=== PATIENT | male | born 1945 | race Caucasian/White ===

== ENCOUNTER 2016-09-14 04:16 | Inpatient (IN) | payer BC, MEDICARE ==
[~2016-09-14] VITALS: Ht 182.9 cm; Wt 91.4 kg
[2016-09-14] VITALS (28 sets, daily range): BP systolic 109–144; BP diastolic 44–80
[~2016-09-14 04:16] MED LIST changes: -AML5T PO; +DILTIAZEM 25 MG/5 ML (CARDIZEM) VIAL IV ONE; +DILTIAZEM 25 MG/5 ML (CARDIZEM) VIAL ONE; -LISI1TAB10 PO; -NF-ESOM40C PO
--- NOTE | 2016-09-14 04:20 | NUR ---
Pt given Cardizem 25mg under a temporary name in the [facility], due to pt not being in the system yet Cardizem 25mg at 0420 Cardizem 10mg at 0425 Cardizem 10mg at 0435 Pt's HR at 0500 is 97 and BP is 126/68 A-fib 95% on a nonrebreather at 15liters
[2016-09-14 04:35] LABS: MEAN CORPUSCULAR VOLUME 89 FL (80-100); MEAN PLATELET VOLUME 9.2 FL (6.0-9.5); PLATELET COUNT 308 10^3uL (150-450); WHITE BLOOD COUNT 9.38 10^3uL (4.0-11.0)
[2016-09-14] MEDS ORDERED: AML5T PO (04:53)
[2016-09-14] MEDS ORDERED: NF-ESOM40C PO (04:53)
[2016-09-14] MEDS ORDERED: LISI1TAB10 PO (04:53)
[2016-09-14] MEDS ORDERED: FUROSEMIDE 40 MG/4 ML (LASIX) VIAL IV ONE (04:55)
[2016-09-14 04:56] LABS: ALBUMIN 3.9 g/dL (3.4-5.0); ANION GAP 15.5 MEQ/L (3-15); CALCULATED IONIZED CALCIUM 3.9 mg/dL (3.8-4.6); TOTAL PROTEIN 7.4 g/dL (6.4-8.5)
[2016-09-14 05:06] LABS: MEAN CORPUSCULAR HEMOGLOBIN 31.8 PG (26.0-34.0); MEAN CORPUSCULAR HGB CONC 35.8 g/dL (31.0-37.0)
[2016-09-14] MEDS ORDERED: POTASSIUM CHLORIDE ER 20 MEQ TABLET PO ONE (05:20)
[2016-09-14 05:21] LABS: BAND NEUTROPHILS % 1 % (0-6); EOSINOPHILS % 3 % (0-4); LYMPHOCYTES # 4.6 #; MONOCYTES # 0.8 #; MONOCYTES % 9 % (3-11); SEGMENTED NEUTROPHILS % 38 % (51-67); TOTAL CELLS COUNTED 100
[2016-09-14 05:22] LABS: ANISOCYTOSIS MODERATE; POIKILOCYTOSIS MODERATE; RBC MORPH SEE REFERENCE (NORMAL)
[2016-09-14] MEDS: meTOprolol TARTRATE 50 MG (LOPRESSOR) TABLET PO SCH ×2 (05:50→09:00)
[2016-09-14] MEDS ORDERED: MAG HYDROX/AL HYDROX/SIMETH 200-200-20/5 ML (MAG-AL PLUS) 30 ML UDC PO PRN (05:50)
[2016-09-14] MEDS ORDERED: FUROSEMIDE 40 MG/4 ML (LASIX) VIAL IV SCH (05:50)
[2016-09-14] MEDS ORDERED: ONDANSETRON 4 MG (ZOFRAN) ORAL DISSOLVE TAB PO PRN (05:50)
[2016-09-14] MEDS ORDERED: ACETAMINOPHEN 325 MG TAB (TYLENOL) PO PRN (05:50)
[2016-09-14] MEDS ORDERED: CALCIUM CARBONATE CHEWABLE 300 MG (TUMS) TABLET PO PRN (05:50)
--- NOTE | 2016-09-14 06:21 | NUR ---
Dr. Arroyo called and asked to hold pt in ED until he spoke with DR Howe
--- NOTE | 2016-09-14 06:23 | History and Physical (E) ---
History & Physical Admission Details Admit Date/Time 09-14 0600 Primary Care Provider Subjective CC SOA, palpitations History of Present Illness Very pleasant 71-year-old male who lives in [place] but is in town for work called emergency services early this am with acute onset of shortness of breath and palpitations. These sx came on after he had awakened and had been up. He called emergency services, they heard some wheezing and he received a nebulized bronchodilator. He was found to be in rapid A. fib, in the emergency room he was given 3 IV boluses of Cardizem and his heart rate slowed into the 1 teens to 120s. He is also given a dose of IV Lasix 40 mg and is feeling better. He has no known history of atrial fibrillation or heart disease. I asked our ER provider to discuss possibility of cardioversion now with apparent acute onset and fairly clear timing of onset. CV in [facility] recommended not to cardiovert at this time in case had been in and out of it longer. He recommended anticoagulation and possible amiodarone ( but I did not get details of IV load or oral load) He was back in the 130s HR so cardizem infusion was started in the ER. PMH HTN tobacco use syndrome FH NC based on age SH smokes 1-1.5 PPD tob lives in [place] visiting for work Allergies: Coded Allergies: No Known Drug Allergies (Unverified , 09/14/16) Home Medications Summary lisinopril Objective Vital Signs Date Time Temp Pulse Resp B/P Pulse Ox O2 Delivery O2 Flow Rate FiO2 09/14/16 04:32 Nonrebreather 15 09/14/16 04:26 96.1 147 20 134/75 78 Laboratory Results Past 24 Hrs 09/14/16 04:04: Absolute Band Neutrophils 0.1, Alanine Aminotransferase (ALT/SGPT) 25, Albumin 3.9, Albumin/Globulin Ratio 1.114, Alkaline Phosphatase 125, Anion Gap 15.5, Anisocytosis Moderate, Aspartate Amino Transf (AST/SGOT) 33, BUN/Creatinine Ratio 16, Band Neutrophils % 1, Basophils # (Auto) , Basophils # (Manual) 0.0, Basophils % (Manual) 0, Basophils (%) (Auto) , Blood Morphology Comment See reference, Blood Urea Nitrogen 12, Calcium Level 9.0, Calcium/Ionized Calcium Ratio 3.9, Calculated Osmolality 257, Carbon Dioxide Level 23, Chloride Level 95 , Creatinine 0.73, Differential Total Cells Counted 100, Eosinophils # 0.3, Eosinophils # (Auto) , Eosinophils % (Manual) 3, Eosinophils (%) (Auto) , Estimat Glomerular Filtration Rate 127.8, Estimated GFR (Non- 105.6, Free Thyroxine (T4) Calculated 1.34, Glucose Level 190, Hematocrit 43.30 , Hemoglobin 15.5, Lymphocytes # 4.6, Lymphocytes # (Auto) , Lymphocytes % ( Manual) 49, Lymphocytes (%) (Auto) , Mean Corpuscular Hemoglobin 31.8, Mean Corpuscular Hemoglobin Concent 35.8, Mean Corpuscular Volume 89, Mean Platelet Volume 9.2, Metamyelocytes % 0, Monocytes # 0.8, Monocytes # (Auto) , Monocytes % (Manual) 9, Monocytes (%) (Auto) , XK-Sid-D-Type Natriuretic Peptide 1740, Neutrophils # 3.6, Neutrophils # (Auto) , Neutrophils (%) (Auto) , Platelet Count 308, Poikilocytosis Moderate, Potassium Level 3.3, Prothromb Time International Ratio 1.0, Prothrombin Time 11.4, Red Blood Count 4.88, Red Cell Distribution Width 14.0, Segmented Neutrophils % 38, Sodium Level 130, Thyroid Stimulating Hormone (TSH) 0.99, Thyroxine (T4) 6.8, Total Bilirubin 0.6, Total Protein 7.4, Troponin I 0.028, White Blood Count 9.38 Imaging CXR with cephalization Assessment/Plan * acute onset of Afib RVR. New onset. I asked ER to discuss w CV, he did d/w in [facility], recommended not to CV at this time if has been > 48 hours or intermitttent. Seems like acute onset this am, but we should replace K and check Mg first. Will dose w Apixaban or whatever formulary is for now, rate control with IV cardizem and get echo. TSH is normal. LIkelky with HTN and lung dz as culprits. Ordered lopressor 100 mg PO x 1 to begin "load" CV in ER discussion mentioned amiodarone as well, but will need to discuss to see if IV or oral load is indicated, could lead to cardioversion as well and may want to be on DOAC longer than 48 hours prior to starting * acute CHF. unclear if systolic/diastolic, assuming from rapid rate. echo ordered. Again will need to see if CV can do echo here/now or will have to wait to be interpreted. * HTN * tobacco abuse syndrome *GERD Diet- low sodium Code Status-ful DVT prophylaxis-apixaban ordered Disposition-full admit to ICU for cardizem infusion etc End of Report . BEA CARRANZA MD September 14, 2016 06:23 End of Report . BEA CARRANZA MD September 14, 2016 06:23
[2016-09-14] MEDS ORDERED: DILTIAZEM IV FOR DRIP 125 MG in SODIUM CHLORIDE 100 ML IV PRN ×2 (06:25→06:35)
--- NOTE | 2016-09-14 06:36 | NUR ---
pt's 02 sat checked with an ear probe, noted sats are 99%, pt turned down the 02 to 4 liters per NC, sats are remaining 97%.
[2016-09-14 06:40] LABS: BILIRUBIN,URINE Negative (Negative); CLARITY,URINE Clear; COLOR,URINE Yellow; GLUCOSE, URINE (UA) Negative (Negative); LEUKOCYTE ESTERASE ,URINE Negative (Negative); UROBILINOGEN,URINE 0.2 mg/dL (0.2-1.0)
[2016-09-14] MEDS ORDERED: ALBUTEROL 0.083% NEB SOLUTION 2.5 MG/3 ML VIAL INH PRN (06:45)
[2016-09-14 06:46] LABS: URINE CENTRIFUGED VOLUME 12 mL
[2016-09-14 06:48] LABS: RBC,URINE 0-2 /HPF
--- NOTE | 2016-09-14 07:00 | NUR ---
Pt arrived in ICU at 0650, report received from Caity RN and Mary RN. Pt taken to room 346 per stretcher and helped to bed. Monitor applied showing Afib, pt is on a cardizem gtt at 5mg/hr. VS taken with HR in the 130's. Assessments completed. Lung sounds with rales and ronchi. Pt has a hx of at least 50 yrs smoking. BS audible in all quads, abdomen soft, rounded. Pulses palpable in radial and dorsal and strong. Pt is alert and oriented x 4, is here working from [place]. States he became SOB this morning and diaphoretic. Has not had this happen before.
[2016-09-14] MEDS ORDERED: NS FLUSH 10 ML PRN IV (08:05)
[2016-09-14] MEDS ORDERED: NS FLUSH 3 ML PRN IV (08:05)
--- NOTE | 2016-09-14 08:30 | Diagnostic Imaging Report ---
Indication: Dyspnea and weakness. Discussion: Single portable upright view of the chest was obtained, no comparison. Borderline cardiomegaly is present. Bilateral mixed interstitial and alveolar opacities are noted, likely pulmonary edema, less likely atypical infection. No pleural fluid or pneumothorax. No acute osseous abnormality. Impression: 1. Borderline cardiomegaly with suspected failure. Dictated by: Dictated on workstation # [id number]
--- NOTE | 2016-09-14 08:50 | NUR ---
Radiology present to do ultrasound of carotids and echo, pt tolerated procedure well.
[2016-09-14] MEDS ORDERED: APIXABAN 2.5 MG (ELIQUIS) TABLET PO SCH (09:00)
[2016-09-14] MEDS ORDERED: NS FLUSH 3 ML DAILY IV SCH (09:00)
[2016-09-14] MEDS ORDERED: SPIRONOLACTONE 50 MG PO SCH (09:00)
[2016-09-14] MEDS ORDERED: ASPIRIN 325 MG TAB PO SCH (09:00)
--- NOTE | 2016-09-14 09:43 | NUR ---
Pt converted to SR, cardizem gtt decreased to 5mg/hr, per Dr orders.
--- NOTE | 2016-09-14 09:49 | NUR ---
NUTRITION ASSESSMENT Level 1 Patient: Caleb Elkins Age/Sex: 71/M Date Screened: 09-14-16 Weight: 201#/91.4 kg Height: 72 inches Primary Diagnosis: new onset a fib, HTN, CHF Diet Order: medium diabetic Relevant labs: sodium 130, potassium 3.3, glucose 190, magnesium 1.5 Food allergies: N Nutrition Assessment Criteria Age over 80: N Body Mass Index (BMI) under 19: N Admission Screening Indicates Risk? N Moderate/High Risk Diagnosis: 6 points TPN or PPN: N NPO or clear liquid diet: N Serum Glucose <70 or >180: 3 points Hgb A1c >6.7: N/A Total: 9 points Risk Screen: __ Patient at low nutritional risk based on available data; reevaluate in 5-7 days __ Patient at moderate nutritional risk based on available data; reevaluate in 3-5 days _X_ Patient at high nutritional risk; complete Nutrition Assessment within 48 hours of admission.
[2016-09-14] MEDS: POTASSIUM CHLORIDE ER 20 MEQ TABLET PO SCH ×2 (10:12→12:55)
--- NOTE | 2016-09-14 10:49 | Progress Note-A/P (E) ---
Progress Note Subjective Subjective rapid cardiac rate causing syspnea 2 a.m. today Objective VS Vital Signs Date Time Temp Pulse Resp B/P Pulse Ox O2 Delivery O2 Flow Rate FiO2 09/14/16 09:47 79 09/14/16 09:45 26 114/59 92 Nasal cannula 09/14/16 08:41 97.1 09/14/16 06:35 4 Current Medications Current Medications Acetaminophen 650 mg Q6H PRN PO; Start 09/14/16 at 05:50 Tramadol HCl 50 mg Q6H PRN PO; Start 09/14/16 at 05:50 Calcium Carbonate 300 mg Q8H PRN PO; Start 09/14/16 at 05:50 Al Hydrox/Mg Hydrox/Simethicone 30 ml Q6H PRN PO; Start 09/14/16 at 05:50 Ondansetron HCl 4 mg Q6HR PRN PO; Start 09/14/16 at 05:50 Metoprolol Tartrate 50 mg BID PO; Start 09/14/16 at 05:50 Furosemide 40 mg Q12H IV; Start 09/14/16 at 05:50 Aspirin 325 mg 325 mg DAILY@0900 PO Last administered on 09/14/16 10:13; Admin Dose 325 MG; Start 09/14/16 at 09:00 Diltiazem HCl/ Sodium Chloride 125 ml @ 0 mls/hr Q0M PRN IV; Start 09/14/16 at 06:35 Apixaban 5 mg BID PO Last administered on 09/14/16 08:20; Admin Dose 5 MG; Start 09/14/16 at 09:00 Potassium Chloride 20 meq TID PO Last administered on 09/14/16 10:12; Admin Dose 20 MEQ; Start 09/14/16 at 09:00; Stop 09/16/16 at 08:59 Albuterol Sulfate 2.5 mg Q2H PRN INH; Start 09/14/16 at 06:45 Sodium Chloride 3 ml DAILY IV; Start 09/14/16 at 09:00 Sodium Chloride 3 ml UD PRN IV; Start 09/14/16 at 08:05 Sodium Chloride 10 ml UD PRN IV; Start 09/14/16 at 08:05 General Awake, alert, oriented to person, place, and situation. NAD at present HEENT EOMI, PERRL CV S1 S2 audible irregular atrial repid rvr new onset atrial fib. converted to sinus 10;15 a.m. Lungs bilat expiratory wheezing bilat a. p. no hx of copd but long two pks per day smoker. Abdomen Soft non distended, no tenderness to palpation, no masses obese. Extremities No edema Integumentary No unusual findings Neuro No focal motor neuro deficits Musculoskeletal wnl at this time. Labs, Most Recent- Laboratory Results Past 24 Hrs 09/14/16 04:04: Absolute Band Neutrophils 0.1, Alanine Aminotransferase (ALT/SGPT) 25, Albumin 3.9, Albumin/Globulin Ratio 1.114, Alkaline Phosphatase 125, Anion Gap 15.5, Anisocytosis Moderate, Aspartate Amino Transf (AST/SGOT) 33, BUN/Creatinine Ratio 16, Band Neutrophils % 1, Basophils # (Auto) , Basophils # (Manual) 0.0, Basophils % (Manual) 0, Basophils (%) (Auto) , Blood Morphology Comment See reference, Blood Urea Nitrogen 12, Calcium Level 9.0, Calcium/Ionized Calcium Ratio 3.9, Calculated Osmolality 257, Carbon Dioxide Level 23, Chloride Level 95 , Creatinine 0.73, Differential Total Cells Counted 100, Eosinophils # 0.3, Eosinophils # (Auto) , Eosinophils % (Manual) 3, Eosinophils (%) (Auto) , Estimat Glomerular Filtration Rate 127.8, Estimated GFR (Non- 105.6, Free Thyroxine (T4) Calculated 1.34, Glucose Level 190, Hematocrit 43.30 , Hemoglobin 15.5, Lymphocytes # 4.6, Lymphocytes # (Auto) , Lymphocytes % ( Manual) 49, Lymphocytes (%) (Auto) , Mean Corpuscular Hemoglobin 31.8, Mean Corpuscular Hemoglobin Concent 35.8, Mean Corpuscular Volume 89, Mean Platelet Volume 9.2, Metamyelocytes % 0, Monocytes # 0.8, Monocytes # (Auto) , Monocytes % (Manual) 9, Monocytes (%) (Auto) , AQ-Nul-F-Type Natriuretic Peptide 1740, Neutrophils # 3.6, Neutrophils # (Auto) , Neutrophils (%) (Auto) , Platelet Count 308, Poikilocytosis Moderate, Potassium Level 3.3, Prothromb Time International Ratio 1.0, Prothrombin Time 11.4, Red Blood Count 4.88, Red Cell Distribution Width 14.0, Segmented Neutrophils % 38, Sodium Level 130, Thyroid Stimulating Hormone (TSH) 0.99, Thyroxine (T4) 6.8, Total Bilirubin 0.6, Total Protein 7.4, Troponin I 0.028, White Blood Count 9.38 09/14/16 04:40: Magnesium Level 1.5 09/14/16 06:20: Urine Bacteria None seen, Urine Bilirubin Negative, Urine Blood Trace-lysed, Urine Clarity Clear, Urine Collection Type Clean catch, Urine Color Yellow, Urine Glucose (UA) Negative, Urine Hyaline Casts Rare, Urine Ketones Negative, Urine Leukocyte Esterase Negative, Urine Microscopic RBC 0-2, Urine Mucus Rare, Urine Nitrite Negative, Urine Protein 1+, Urine Specific Spencer 1.015, Urine Squamous Epithelial Cells 0-2, Urine Urobilinogen 0.2, Urine WBC None seen, Urine pH 6.0, Volume Urine Centrifuged 12 ml 24 Hr Result Diagram CBC BMP Last 24 Hrs 09/14/16 04:04 Micro Results none Impressions multiple chronic and one new to patient of 1. atrial fib with rvr , converted 2. copd status unknown 3. tobacco abuser 4. hypertension not followed in over a year. 5. mild cough non productive. Assessment atrial fib presentation with rvr now controlled. in icu. Plan vanessa cardiac drip and vanessa and begin po dose in 12 hrs if c.r. greater than 90. discuss with patient to see either a local doctor or return to [facility] to pcp their. echo and carotid u/s. FALLON OLSEN DO September 14, 2016 10:49
--- NOTE | 2016-09-14 11:01 | NUR ---
NUTRITION ASSESSMENT Level II Patient: Caleb Elkins Age/Sex: 71/M Date Assessed: 09-14-16 ASSESSMENT Pertinent History: Patient admitted with new onset a fib, CHF and HTN, and received consult request for patient education. Of note, his blood glucose is elevated but he does not have a diagnosis of diabetes. PMHx includes HTN and tobacco abuse. He lives in [place] but was working in town when became ill. No known weight loss or GI concerns. Meds/Nutrition: KCl, Lasix Weight: 201#/91.4 kg Height: 72 inches Body Mass Index (BMI): 27.3 [place] Body Weight : 178#/80.9 kg % IBW: 112% GASTROINTESTINAL Appetite: fair, eating 50% Diet Order: medium diabetic, 2 g. sodium Unintentional loss of >10 lbs. in 3 months: N Difficult to chew/swallow: N Diabetes: N Relevant Labs: sodium 130, potassium 3.3, glucose 190, magnesium 1.5 Calculations for Nutritional Assessment Estimated calorie needs: 22-25 kcals/kg = 2,000-2,275 kcals Estimated protein needs: 1.0-1.2 g/kg = 91-109 g. day DIAGNOSIS 1. Nutrition Diagnosis: Decreased sodium needs related to heart failure as evidenced by new-onset CHF with a fib and HTN. 2. Nutrition Diagnosis: Altered nutrition-related lab values (glucose) related to unsure--endocrine dysfunction vs. stress response as evidenced by blood glucose 190 without dx of diabetes. NUTRITIONAL INTERVENTION Goal: Patient will receive adequate nutrition to meet his needs. Plan: Patient was sleeping when I went to see him, and I did not waken him at this time. Visited with RN who confirmed that he does not have an official diagnosis of diabetes at this time. Recommend we obtain an Hgb A1c to better assess his blood sugars and determine if the elevation is due to acute illness or previously undiagnosed diabetes. Plan to visit with pt. re: low sodium diet (especially while traveling and eating out) tomorrow morning. In the meantime, will provide 2 g. sodium, medium diabetic diet as ordered, though unsure if the medium diabetic restrictions will remain necessary. Will follow closely with physician. MONITORING & EVALUATION _X_ Monitor patients menu selections _X_ Monitor patients food intake per nursing notes __ Monitor NPO/clear liquid days _X_ Monitor lab values __ Monitor I&O __ Other
--- NOTE | 2016-09-14 11:39 | Diagnostic Imaging Report ---
PROCEDURE: US Carotid Duplex Bilateral. TECHNIQUE: Multiple real-time grayscale images were obtained over the carotid arteries in various projections bilaterally. Additional duplex Doppler and color Doppler images were also obtained. Indication: Atrial fibrillation, history of tobaccoism, carotid stenosis. Comparison: None. Discussion: Sonographic evaluation of the common and internal carotid arteries and bilateral vertebral arteries was performed with a linear transducer. Images were assessed for grayscale appearance, spectral and color Doppler blood flow. Atherosclerotic plaque is present within the bilateral carotid bifurcations. Elevated flow velocities are present within the bilateral external carotid arteries consistent with greater than 70% stenosis. Normal flow velocities are present within the bilateral internal carotid arteries consistent with greater than 50% stenosis. Normal antegrade flow within the bilateral vertebral arteries. Impression: 1. Atherosclerotic plaque within the bilateral internal carotid arteries contributing to less than 50% stenosis. Dictated by: Dictated on workstation # [id number]
--- NOTE | 2016-09-14 12:30 | NUR ---
Dr. Vizcaino present and new order received to dc the cardizem gtt. Pt remains in SR.
[2016-09-14 12:33] LABS: ANION GAP 11.8 MEQ/L (3-15)
[2016-09-14] MEDS ORDERED: ENOXAPARIN 30 MG/0.3 ML (LOVENOX) SYR SC SCH (13:10)
[2016-09-14] MEDS ORDERED: DIAZEPAM 5 MG (VALIUM) TABLET PO ONE (13:10)
--- NOTE | 2016-09-14 13:31 | Discharge Instructions (E) ---
Discharge Instructions Instructions You are being transferred to [facility] for cardiology services. Britt Lin APRN September 14, 2016 13:31 FALLON OLSEN DO September 15, 2016 15:58
--- NOTE | 2016-09-14 13:33 | Discharge Summary (E FT) ---
Discharge Summary (E FT) Admit Date September 14, 2016 at 06:05 Discharge Date September 14, 2016 4372 Admitting Provider Toni Arroyo MD Primary Care Provider Attending Provider Toni Arroyo MD Consulting Provider Hospital Course Summary CC SOA, palpitations History of Present Illness Very pleasant 71-year-old male who lives in [place] but is in town for work called emergency services early this am with acute onset of shortness of breath and palpitations. These sx came on after he had awakened and had been up. He called emergency services, they heard some wheezing and he received a nebulized bronchodilator. He was found to be in rapid A. fib, in the emergency room he was given 3 IV boluses of Cardizem and his heart rate slowed into the 1 teens to 120s. He is also given a dose of IV Lasix 40 mg and is feeling better. He has no known history of atrial fibrillation or heart disease. I asked our ER provider to discuss possibility of cardioversion now with apparent acute onset and fairly clear timing of onset. CV in [facility] recommended not to cardiovert at this time in case had been in and out of it longer. He recommended anticoagulation and possible amiodarone ( but I did not get details of IV load or oral load) He was back in the 130s HR so cardizem infusion was started in the ER. Current Medications Medications (Trade) Dose Ordered Sig/Mendel Route Start Time Stop Time Status Last Admin Acetaminophen (Tylenol Tab) 650 mg Q6H PRN PO 09/14/16 05:50 Al Hydrox/Mg Hydrox/Simethicone (Mag-Al Plus Suspension) 30 ml Q6H PRN PO 09/14/16 05:50 Albuterol Sulfate (Proventil 0.083% Neb Solution) 2.5 mg Q2H PRN INH 09/14/16 06:45 Apixaban (Eliquis) 5 mg BID PO 09/14/16 09:00 09/14/16 08:20 Aspirin (Aspirin Tab) 325 mg DAILY@0900 PO 09/14/16 09:00 09/14/16 10:13 Calcium Carbonate (Tums) 300 mg Q8H PRN PO 09/14/16 05:50 Diltiazem HCl 125 mg/Sodium Chloride 125 ml @ 0 mls/hr Q0M PRN IV 09/14/16 06:25 09/14/16 07:56 DC 09/14/16 06:43 Diltiazem HCl/ Sodium Chloride (Cardizem Iv For Drip/NS (Ivpb)) 125 ml @ 0 mls/hr Q0M PRN IV 09/14/16 06:35 09/14/16 12:24 DC Enoxaparin Sodium (Lovenox) 30 mg Q12HR SC 09/14/16 13:10 09/14/16 13:25 Furosemide (Lasix Inj) 40 mg Q12H IV 09/14/16 05:50 Metoprolol Tartrate (Lopressor Tab) 50 mg BID PO 09/14/16 05:50 Ondansetron HCl (Zofran Oral Dissolve) 4 mg Q6HR PRN PO 09/14/16 05:50 Potassium Chloride (Klor Con M20) 20 meq TID PO 09/14/16 09:00 09/16/16 08:59 09/14/16 12:55 Sodium Chloride (Normal Saline Flush) 3 ml DAILY IV 09/14/16 09:00 Sodium Chloride (Normal Saline Flush) 3 ml UD PRN IV 09/14/16 08:05 Sodium Chloride (Normal Saline Flush) 10 ml UD PRN IV 09/14/16 08:05 Spironolactone 50 mg 50 mg DAILY PO 09/14/16 09:00 09/14/16 09:00 DC Tramadol HCl (Ultram) 50 mg Q6H PRN PO 09/14/16 05:50 Vital Signs Date Time Temp Pulse Resp B/P Pulse Ox O2 Delivery O2 Flow Rate FiO2 09/14/16 13:12 72 09/14/16 13:00 24 136/68 95 Nasal cannula 09/14/16 08:41 97.1 09/14/16 06:35 4 Today he denied any chest pain but felt diaphoretic - Troponin checked and elevated 4.389. EKG shows shannon ST wave changes. NOT SOB and never complained of any chest pain. Awake and alert PERRLA Neck supple Lungs clear CV: S1S2 irregular- converted to Sinus at 10:15 this am abdomen soft nontender Ext: no cyanosis Neuro: alert and oriented, no focal neuro changes Skin: warm and dry Laboratory Results Past 24 Hrs 09/14/16 04:04: Absolute Band Neutrophils 0.1, Alanine Aminotransferase (ALT/SGPT) 25, Albumin 3.9, Albumin/Globulin Ratio 1.114, Alkaline Phosphatase 125, Anion Gap 15.5, Anisocytosis Moderate, Aspartate Amino Transf (AST/SGOT) 33, BUN/Creatinine Ratio 16, Band Neutrophils % 1, Basophils # (Auto) , Basophils # (Manual) 0.0, Basophils % (Manual) 0, Basophils (%) (Auto) , Blood Morphology Comment See reference, Blood Urea Nitrogen 12, Calcium Level 9.0, Calcium/Ionized Calcium Ratio 3.9, Calculated Osmolality 257, Carbon Dioxide Level 23, Chloride Level 95 , Creatinine 0.73, Differential Total Cells Counted 100, Eosinophils # 0.3, Eosinophils # (Auto) , Eosinophils % (Manual) 3, Eosinophils (%) (Auto) , Estimat Glomerular Filtration Rate 127.8, Estimated GFR (Non- 105.6, Free Thyroxine (T4) Calculated 1.34, Glucose Level 190, Hematocrit 43.30 , Hemoglobin 15.5, Hemoglobin A1c 6.2, Lymphocytes # 4.6, Lymphocytes # (Auto) , Lymphocytes % (Manual) 49, Lymphocytes (%) (Auto) , Mean Corpuscular Hemoglobin 31.8, Mean Corpuscular Hemoglobin Concent 35.8, Mean Corpuscular Volume 89, Mean Platelet Volume 9.2, Metamyelocytes % 0, Monocytes # 0.8, Monocytes # (Auto) , Monocytes % (Manual) 9, Monocytes (%) (Auto) , NT-Pro-B- Type Natriuretic Peptide 1740, Neutrophils # 3.6, Neutrophils # (Auto) , Neutrophils (%) (Auto) , Platelet Count 308, Poikilocytosis Moderate, Potassium Level 3.3, Prothromb Time International Ratio 1.0, Prothrombin Time 11.4, Red Blood Count 4.88, Red Cell Distribution Width 14.0, Segmented Neutrophils % 38, Sodium Level 130, Thyroid Stimulating Hormone (TSH) 0.99, Thyroxine (T4) 6.8, Total Bilirubin 0.6, Total Protein 7.4, Troponin I 0.028, White Blood Count 9.38 09/14/16 04:40: Magnesium Level 1.5 09/14/16 06:20: Urine Bacteria None seen, Urine Bilirubin Negative, Urine Blood Trace-lysed, Urine Clarity Clear, Urine Collection Type Clean catch, Urine Color Yellow, Urine Glucose (UA) Negative, Urine Hyaline Casts Rare, Urine Ketones Negative, Urine Leukocyte Esterase Negative, Urine Microscopic RBC 0-2, Urine Mucus Rare, Urine Nitrite Negative, Urine Protein 1+, Urine Specific [place] 1.015, Urine Squamous Epithelial Cells 0-2, Urine Urobilinogen 0.2, Urine WBC None seen, Urine pH 6.0, Volume Urine Centrifuged 12 ml 09/14/16 12:15: Anion Gap 11.8, BUN/Creatinine Ratio 15, Blood Urea Nitrogen 11, Calcium Level 9.4, Carbon Dioxide Level 25, Chloride Level 99, Creatinine 0.75, Estimat Glomerular Filtration Rate 123.9, Estimated GFR (Non- 102.4, Glucose Level 121, Potassium Level 4.5, Sodium Level 131, Troponin I 4.390, Creatine Kinase MB 26.2 CAROTID US: Discussion: Sonographic evaluation of the common and internal carotid arteries and bilateral vertebral arteries was performed with a linear transducer. Images were assessed for grayscale appearance, spectral and color Doppler blood flow. Atherosclerotic plaque is present within the bilateral carotid bifurcations. Elevated flow velocities are present within the bilateral external carotid arteries consistent with greater than 70% stenosis. Normal flow velocities are present within the bilateral internal carotid arteries consistent with greater than 50% stenosis. Normal antegrade flow within the bilateral vertebral arteries. Impression: 1. Atherosclerotic plaque within the bilateral internal carotid arteries contributing to less than 50% stenosis. CXR: Discussion: Single portable upright view of the chest was obtained, no comparison. Borderline cardiomegaly is present. Bilateral mixed interstitial and alveolar opacities are noted, likely pulmonary edema, less likely atypical infection. No pleural fluid or pneumothorax. No acute osseous abnormality. Impression: 1. Borderline cardiomegaly with suspected failure. A/P: Acute onset of Afib RVR. New onset. - Cardizem gtt at 10mg/hr - he converted to SR at 10:30 this am. Drip decreased down to 5mg/hr. Acute Congestive Heart Failure- Echo done -report pending- PRELIMINARY Shows EF 40%, Mild- Mod MR & TR, mild sclerosis aortic valve, MAC Carotid stenosis- Sono done 75% stenosis reported HTN Tobacco Abuse COPD- likely GERD P: Troponin elevated to > 4.00, EKG mild ST wave changes, Pt felt diaphoretic, Dr Costello notified at [place] and hospitalist to admit. He is a full code He is aware of his situation, family notified. Discharge Disposition Transferring to [facility] for Cardiology services- Dr Costello Continued Medications: Amlodipine Besylate (Amlodipine Besylate) 5 Mg Tablet 5 MG PO DAILY TAB Esomeprazole Magnesium (Nexium) 40 Mg Capsule.dr 40 MG PO DAILY CAP Lisinopril/Hydrochlorothiazide (Lisinopril-HCTZ 20-25 mg Tab) 1 Each Tablet 1 EACH PO DAILY TAB Follow up Instructions You are being transferred to [facility] for cardiology services. Copies to: End of Report . Britt Lin CARD ASSEMBLER September 14, 2016 13:33
--- NOTE | 2016-09-14 14:00 | NUR ---
Report given to EMS personnel and pt placed on stretcher and pt transferred to [facility].
--- NOTE | 2016-09-14 14:21 | NUR ---
summary: Pt was noted to have elevated troponin, new orders received. Valium 5 mg po given, Lovenox 30 mg SQ given per orders. Pt had eaten lunch, denied any pain or discomfort of any kind. Oxygen remained on and monitor continues to show SR with ST elevation. At [facility] present to transfer pt to [facility]. Report given to Joleen Dailey RN. [facility] contacted and informed of transfer. Pt belongings, keys x2, cell phone and bulk picker, motel room [place], clothes, one hearing aid, and pt home meds transferred with pt.
== END 2016-09-14 14:00 | disposition short-term general hospital (02) | DRG 308 ==
LOC: EDUNIT# 04:16 → ED 04:18 → MED/SURG 06:05 → UNDOADMOB 06:05 → MED/SURG 06:06 → ICU 06:06 → OBSVTOIN 07:53 → INTOOBSV 07:53
PROVIDERS: ADMIT Pediatrics; ATTEND Pediatrics
DX: I48.91 Unspecified atrial fibrillation (principal); I50.21 Acute systolic (congestive) heart failure; I11.0 Hypertensive heart disease with heart failure; J44.9 Chronic obstructive pulmonary disease, unspecified; I08.3 Combined rheumatic disorders of mitral, aortic and tricuspid valves; I65.23 Occlusion and stenosis of bilateral carotid arteries; R79.89 Other specified abnormal findings of blood chemistry; K21.9 Gastro-esophageal reflux disease without esophagitis; F17.210 Nicotine dependence, cigarettes, uncomplicated
CPT/HCPCS: 36415; 71010; 80048; 80053; 81003; 81015; 82553; 83036; 83735; 83880; 84436; 84439; 84443; 84484; 85007; 85025; 85610; 93005; 93010; 93306; 93880; 96374; 96375; 99285

== ENCOUNTER → 2016-09-14 | Outpatient (CLI) | payer BC ==
[~2016-09-14] MED LIST: AML5T PO; LISI1TAB10 PO; NF-ESOM40C PO
== END ==
LOC: EMS 03:52
DX: I21.4 Non-ST elevation (NSTEMI) myocardial infarction (principal); I48.91 Unspecified atrial fibrillation